=== PATIENT | female | born 1990 | race Caucasian/White ===

== ENCOUNTER 2020-03-11 06:48 | Outpatient (NON) | payer OTHER, SELFPAY ==
[2020-03-11 16:42] LABS: SARS-CoV-2 RNA PCR Negative
== END 2020-03-11 06:49 ==
PROVIDERS: Visit Provider Family Medicine
DX: J02.9 Acute pharyngitis, unspecified (principal); R09.81 Nasal congestion; Z20.828 Contact with and (suspected) exposure to other viral communicable diseases
CPT/HCPCS: 87635; C9803; U0003

== ENCOUNTER 2020-07-21 06:55 | Outpatient (NON) | payer SELFPAY ==
[2020-07-21 21:57] LABS: SARS-CoV-2 RNA PCR Negative
== END 2020-07-21 06:56 ==
PROVIDERS: PCP Physician Assistant; Visit Provider Physician Assistant
DX: Z20.822 Contact with and (suspected) exposure to COVID-19 (principal)
CPT/HCPCS: C9803; U0003; U0005

== ENCOUNTER 2020-10-14 19:58 | Emergency (ER) | payer SELFPAY ==
--- NOTE | ~2020-10-14 | XR_ITS ---
XR finger 5th RT min 2V DATE: 10/14/2020 20:41 INDICATION: Injury TECHNIQUE: 4 views COMPARISON: None FINDINGS: There is complete posterior dislocation at the proximal interphalangeal joint. No apparen t fracture. IMPRESSION: Posterior dislocation at proximal interphalangeal joint lower vague irregularity lung bases no hilar or posterior dislocation of proximal interphalangeal joint; no fracture Reviewed, dictated and finalized at location A. IMPRESSION: Posterior dislocation at proximal interphalangeal joint lower vague irregularit y lung bases no hilar or posterior dislocation of proximal interphalangeal join t; no fracture
[2020-10-14 20:24] VITALS: BP 78/41; PULSE 98; RESP 18; O2SAT 100
[2020-10-14 20:38] VITALS: BP 114/75; PULSE 71; RESP 16; O2SAT 98
--- NOTE | 2020-10-14 20:48 | PC.NURSE ---
pt in room ED 2 c/o pain and deformity to right pinkie finger after having it hit by ball playing kickball. resting on stretcher with eyes open. family at bedside. no s/s of distress. will continue to monitor.
--- NOTE | 2020-10-14 21:05 | ED.UPPEXIN ---
HPI - Extremity Injury (Upper) General Chief Complaint: Extremity Injury, Upper Stated Complaint: broken pinkie Time Seen by Provider: 10/14/20 20:43 Source: patient Mode of arrival: ambulatory Limitations: no limitations History of Present Illness HPI narrative: 30-year-old female Patient was playing kickball and tried to catch the ball but instead she dislocated the PIP of her right fifth finger Related Data Allergies Allergy/AdvReac Type Severity Reaction Status Date / Time SULFA Allergy Intermediate Unknown Uncoded 10/14/20 20:42 Review of Systems Musculoskeletal: Musculoskeletal: Reports arthralgias and Reports joint swelling Neurologic: Denies focal weakness and Denies numbness PMFSH Social History Social History Gender identity (if verbalized by the patient): Female Exam Const: General: no acute distress and alert Other: A little diaphoretic Resp: Effort & Inspection: normal respiratory effort Skin: General skin exam: normal color and no pallor Neuro: General: patient oriented x3 Extrem: Other: Dislocated right fifth PIP with intact sensation distally Course Vital Signs Vital signs: Vital Signs Pulse Rate 98 10/14/20 20:24 Respiratory Rate 18 10/14/20 20:24 Blood Pressure 78/41 L 10/14/20 20:24 Pulse Oximetry 100 10/14/20 20:24 Pulse Rate 71 10/14/20 20:38 Respiratory Rate 16 10/14/20 20:38 Blood Pressure 114/75 10/14/20 20:38 Pulse Oximetry 98 10/14/20 20:38 Procedures Orthopedic Joint Reduction Joint #1: Orthopedic Joint Reduction Date: 10/14/20 Orthopedic Joint Reduction Time: 21:11 Side: right Joint Reduction Location: finger (5th pip) Analgesia: none Pre-Procedure Neuro Vascular Exam: normal Technique used: other (Slight gentle tug) Post-reduction neuro exam: intact Post-reduction vascular: intact Post Reduction X-Ray Obtained: No Splint Applied: No (Just cyn taped by nursing) Patient Tolerated Procedure: well Discharge Plan Discharge Clinical Impression: Closed dislocation finger, proximal interphalangeal joint, traumatic Patient Disposition: Home, Self-Care Condition: Improved Instructions: Finger Dislocation (ED) Additional Instructions: Be sure to cyn tape to the finger next to it for the next 4 to 6 weeks of kickball games Follow-up/Referrals: Ruth Ann Mckeon, PAC [Primary Care Provider] - (As needed)
[2020-10-14 21:35] VITALS: BP 127/72; PULSE 72; RESP 16; O2SAT 98
== END 2020-10-14 21:37 | disposition home or self-care (01) ==
PROVIDERS: Emergency Provider Emergency Medicine; PCP Physician Assistant
DX: S63.286A Dislocation of proximal interphalangeal joint of right little finger, initial encounter (principal); W21.09XA Struck by other hit or thrown ball, initial encounter; Y93.6A Activity, physical games generally associated with school recess, summer camp and children
CPT/HCPCS: 26770; 73140; 99285

== ENCOUNTER → 2021-02-22 03:22 | Outpatient (CLI) | payer OTHER, SELFPAY ==
[2021-02-22 19:41] LABS: SARS-CoV-2 RNA PCR Negative
== END ==
PROVIDERS: Visit Provider Obstetrics & Gynecology
DX: Z01.812 Encounter for preprocedural laboratory examination (principal); Z20.822 Contact with and (suspected) exposure to COVID-19
CPT/HCPCS: C9803; U0003; U0005

== ENCOUNTER 2021-02-23 07:58 | Outpatient (CLI) | payer SELFPAY ==
[2021-02-23 08:28] LABS: Hematocrit 37.7 % (37.0-47.0); Hemoglobin 12.4 g/dL (12.0-15.0)
== END 2021-02-23 07:59 | disposition home or self-care (01) ==
PROVIDERS: PCP Physician Assistant; Visit Provider Obstetrics & Gynecology
DX: N92.6 Irregular menstruation, unspecified (principal); Z01.818 Encounter for other preprocedural examination
CPT/HCPCS: 36415; 85014; 85018

== ENCOUNTER 2021-02-25 03:04 | Day surgery (SDC) | payer SELFPAY ==
--- NOTE | 2021-02-22 13:22 | PM.IMHP ---
H&P: HPI History of Present Illness Date/Time: 02/22/21 13:22 this 30-year-old 0 admitted for hysteroscopy and dilatation curettage secondary to bleeding. She had a took an ultrasound which showed thickened endometrium. It appeared to be a possible polyp. Risks and benefits were reviewed in great detail Chief Complaint: bleeding and thickened endometrium Review of Systems Review of Systems: All systems reviewed & are unremarkable except as noted in HPI and below PMFSH Social History Social History Gender identity (if verbalized by the patient): Female Meds Home Medications and Allergies Allergies Allergy/AdvReac Type Severity Reaction Status Date / Time SULFA Allergy Intermediate Unknown Uncoded 10/14/20 20:42 Exam Const: General: no acute distress Eyes: General: appearance normal, both eyes and all related structures Neck: Neck: supple and no JVD Thyroid: thyroid normal Resp: Effort & Inspection: normal respiratory effort Auscultation: clear to auscultation bilaterally Cardio: Rate: regular rate Rhythm: regular rhythm GI: Inspection: non-distended GI Palp: Yes Soft to palpation, No Tenderness to palpation present (GI) and No Guarding due to palpation present (GI) Auscultation: normal bowel sounds : External Female Exam: normal external appearance Speculum Exam - Vagina: normal appearance of the vagina Speculum Exam - Cervix: normal appearance of the cervix Bimanual exam- vagina & uterus: uterine shape normal Bimanual Exam- Adnexa, other: normal adnexae Skin: General skin exam: no rashes or lesions noted Extrem: General: normal to inspection and no edema Psych: Mental Status: mental status grossly normal Affect: normal affect Assessment and Plan Additional Plan impression: Bleeding with thickened endometrium Plan: Hysteroscopy / dilatation curettage
[2021-02-22 15:12] VITALS: BMI 23.9
--- NOTE | 2021-02-24 13:21 | P.PNAN_ITS ---
Anes - Initial Pre Proc Eval Procedure: Operation Date: 02/25/21 11:30 Proposed Procedures p Hysteroscopy Dilation and Curettage - Amari Lucero MD Date/Time: 02/24/21 13:21 Surgeon: Amari Lucero MD Pre Op Diagnosis: Irregular Bleeding Patient Data Age: 30 Gender: F Height: 1.68 m Weight: 67.27 kg Allergies Allergy/AdvReac Type Severity Reaction Status Date / Time Sulfa (Sulfonamide Allergy Intermediate Rash Verified 02/25/21 10:46 Antibiotics) Home Medications Medication Instructions Recorded Confirmed Type prednisolone 10 mg PO PER PKG DIR 02/22/21 02/25/21 History hydrocodone-acetaminophen 1 tablet PO Q4H PRN #30 tablet 02/25/21 Rx Patient hx anesthesia problems: none Family hx anesthesia problems: none [facility] Social History Social History Smoking status: Current every day smoker Tobacco type: cigarettes Additional smoking assessment comments: 1ppd cigarettes x 12 years Substance use: never Living arrangements: alone Gender identity (if verbalized by the patient): Female Spiritual care concerns: No Anes - Eval Final PreProcedure Day of Procedure 02/24/21 13:21 Patient weight: normal Heart: regular rate and rhythm Lungs: clear to auscultation and normal air movement Airway: Mallampati scale class II Neurological: alert and oriented Last oral intake: >/= 8 hours ASA classification: II Emergent: no Anesthetic plan: proceed Anesthesia type and monitoring: general GIVS and standard monitoring Informed Consent: The patient's anesthetic plan and its attendant risks and benefits were discussed with the patient/family/POA. Questions were solicited and answers provided to the satisfaction of the patient/family/POA.
--- NOTE | 2021-02-25 07:20 | WPDHPUPDATE1 ---
History and Physical Update Update Date/Time: 02/25/21 07:20 History and Physical has been reviewed, including an updated exam of the patient. There are NO changes in the patient's condition. Risks, benefits, and alternatives have been discussed and questions answered. Patient agrees to proceed with procedure.
[2021-02-25] MEDS: ACETAMINOPHEN 500 MG TABLET 1000 MG PO (10:55)
--- NOTE | 2021-02-25 10:55 | SUR.PREOP ---
patient updated on surgery delay approx 1 hour will continue to update
[2021-02-25] MEDS: LACTATED RINGERS 1,000 ML 30 ML IV CONT (10:57)
[2021-02-25 11:50] VITALS: BP 99/63; PULSE 56; RESP 14; TEMP 36.8; O2SAT 100
--- NOTE | 2021-02-25 12:13 | SUR.PREOP ---
patient and mother updated again on time delay
--- NOTE | 2021-02-25 12:54 | W.PM.PROC2 ---
Procedure Note - Detailed Date of Procedure 02/25/21 Pre-op Diagnosis Irregular Bleeding Post-op Diagnosis same Procedure Performed Hysteroscopy / dilatation and curettage Surgeon Amari Lucero MD Anesthesia MAC and local Indications this is a 30-year-old female with excessive heavy bleeding refractory to medical therapy Findings uterus sounded to 9cm. Thick irregular endometrial tissue with benign appearance Description of Procedure the patient was prepped draped in the normal sterile fashion placed in the dorsal lithotomy position. Under excellent IV sedation weighted speculum placed posterior fornix vagina. Anterior lip of the cervix grasped with single-tooth tenaculum. 2.5cc of 1% xylocaine anesthesia placed at 2, 4, 8, 10:00 a.m. respectively of the uterus. Uterus sounded to 10cm. Serial dilatation with fragmented dilators performed followed by passage of the 5mm visualizing hysteroscope. Thick irregular endometrial tissue was seen but no evidence of other abnormalities. Each fallopian tube os could be seen and appeared within normal limits. The uterus was then scraped over the entire 360? until a good grating sound was heard. When no further tissue could be removed instruments removed. All sponge, needle, instrument counts were correct. There were no complications Estimated Blood Loss 5 Drains No Packing No Pathology yes Complications No immediate complications Condition stable Disposition same day
[2021-02-25 12:57] VITALS: BP 88/53; PULSE 63; RESP 12; O2SAT 100
[2021-02-25] MEDS: KETOROLAC 30 MG/ML VIAL (*BKC) IV PUSH (12:57)
[2021-02-25 13:10] VITALS: BP 96/69; PULSE 53; RESP 16
[2021-02-25 13:25] VITALS: BP 102/58; PULSE 60; RESP 16
[2021-02-25 13:40] VITALS: BP 105/74; PULSE 55; RESP 16
[2021-02-25 13:54] VITALS: BP 110/71; PULSE 55; RESP 16
== END 2021-02-25 14:00 | disposition home or self-care (01) ==
PROVIDERS: PCP Physician Assistant; Visit Provider Obstetrics & Gynecology
PROC: 0U5B8ZZ Destruction of Endometrium, Via Natural or Artificial Opening Endoscopic (ICD-10-PCS; CPT 58563; principal; 2021-02-25 11:30)
DX: N92.6 Irregular menstruation, unspecified (principal); F17.210 Nicotine dependence, cigarettes, uncomplicated
CPT/HCPCS: 58558; 88305; A9270; J1885; J2250; J2704; J3010; J7120

== ENCOUNTER → 2021-10-27 12:05 | Outpatient (CLI) | payer SELFPAY ==
--- NOTE | ~2021-10-27 | XR_ITS ---
EXAMINATION: [id number] INDICATION: Right rib pain TECHNIQUE: A frontal view of the chest and 3 views of the right ribs were obtained. COMPARISON: None. FINDINGS: The lungs are free of acute opacities. There is no pleural effusion or pneumothorax. The ca rdiomediastinal silhouette is normal. No displaced rib fracture is identified. IMPRESSION: 1. No acute cardiopulmonary abnormality or evidence of displaced rib fracture. Reviewed, dictated and finalized at location F.
== END ==
PROVIDERS: PCP Family Medicine; Visit Provider Family Medicine
DX: S29.9XXA Unspecified injury of thorax, initial encounter (principal)
CPT/HCPCS: 71101

== ENCOUNTER 2022-05-08 19:22 | Emergency (ER) | payer OTHER, SELFPAY ==
--- NOTE | 2022-05-08 19:37 | ED.URI ---
HPI - URI/Sore Throat General Chief Complaint: Upper Respiratory Infection Stated Complaint: flu symptoms Time Seen by Provider: 05/08/22 19:37 Source: patient Mode of arrival: ambulatory Limitations: no limitations History of Present Illness HPI Narrative: Miss Fox is a 31-year-old female patient presenting to the clinic today with complaints of possible flu. She reports that she has had symptoms since yesterday. Reports body aches, chills, fever, dry cough, and vomiting x1. Reports that she has a lot of people around her that her sick. Denies any known contact with anyone with flu, COVID, or strep. She took an at-home COVID test and it was negative today. Patient is 25 weeks MD elicited complaint: sore throat and nasal congestion Related Data Allergies Allergy/AdvReac Type Severity Reaction Status Date / Time Sulfa (Sulfonamide Allergy Intermediate Rash Verified 05/08/22 19:47 Antibiotics) Review of Systems Review of Systems: Pertinent positives per HPI. Patient denies any rash, headache, visual changes, dizziness, shortness of breath, chest pain, palpitations, nausea, vomiting, diarrhea, constipation, abdominal pain, or any urinary issues. [facility] Social History Social History Smoking status: Current every day smoker Tobacco type: cigarettes Additional smoking assessment comments: 1ppd cigarettes x 12 years Substance use: never Gender identity (if verbalized by the patient): Female Spiritual care concerns: No Comments At the time of my signature, I reviewed and agree with the nursing past medical, surgical, social, and family history. There is no relevant family history pertinent to the patient complaint. Exam Narrative: General: Well-developed, well nourished, in no apparent distress Head: Normocephalic, atraumatic Eyes: Pupils equally round and reactive to light bilaterally, EOM intact, sclera and conjunctive clear, no discharge, lids normal Ears: TMs intact and clear, ear canals clear, no drainage, grossly hearing normal. Nose: Nares patent, clear nasal discharge, no inflammation, no sinus tenderness. Mouth: Oral pharynx without lesions or masses, good dentition, MMM. Postnasal drip Neck: Supple, trachea midline, no enlargement of anterior or posterior cervical nodes, no thyroid masses or goiter palpable. Cardio: Regular rate and rhythm, s1 and s2 normal, no murmur appreciated. Resp: Clear to auscultation bilaterally, no rhonchi, rales, wheezing or rubs Course Course Emergency Course: Portions of this record may have been created with voice recognition software. Level of Care: Express Care Visit Vital Signs Vital signs: Vital Signs Temperature 37.1 C 05/08/22 19:40 Pulse Rate 112 H 05/08/22 19:40 Respiratory Rate 18 05/08/22 19:40 Blood Pressure 116/66 05/08/22 19:40 Pulse Oximetry 99 05/08/22 19:40 Oxygen Delivery Room Air 05/08/22 19:40 Temperature 37.1 C 05/08/22 19:40 Pulse Rate 112 H 05/08/22 19:40 Respiratory Rate 18 05/08/22 19:40 Blood Pressure 116/66 05/08/22 19:40 Pulse Oximetry 99 05/08/22 19:40 Oxygen Delivery Room Air 05/08/22 19:40 Vital signs reviewed MDM - URI/Sore Throat MDM Narrative Medical decision making narrative: At the time of visit today patient is resting comfortably on the exam table. Influenza testing was performed in the clinic and was negative. Patient denies sore throat so strep test was not completed. COVID test at home was negative. I suspect patient has viral syndrome/upper respiratory infection. Supportive measures were discussed with the patient she voiced understanding of discharge instructions and agrees to the treatment plan. Differential Diagnosis Differential diagnosis: Likely upper respiratory infection, otitis media, sinusitis, viral infection, bronchitis, influenza, pharyngitis and other (COVID) Lab Data Labs: I
[2022-05-08 19:40] VITALS: BP 116/66; PULSE 112; RESP 18; TEMP 37.1; O2SAT 99
== END 2022-05-08 20:14 | disposition home or self-care (01) ==
PROVIDERS: Emergency Provider Nurse Practitioner Family; PCP Physician Assistant
DX: O98.512 Other viral diseases complicating pregnancy, second trimester (principal); B33.8 Other specified viral diseases; B34.9 Viral infection, unspecified; O99.512 Diseases of the respiratory system complicating pregnancy, second trimester; J06.9 Acute upper respiratory infection, unspecified; Z3A.25 25 weeks gestation of pregnancy; O99.332 Smoking (tobacco) complicating pregnancy, second trimester
CPT/HCPCS: 87804; 99213; G0463

== ENCOUNTER 2022-07-10 17:58 | Outpatient (RCR) | payer OTHER, SELFPAY ==
[2022-06-21 12:59] VITALS: BP 123/77; PULSE 82
[2022-07-10 19:00] VITALS: BP 136/87; PULSE 97
== END 2022-09-16 19:47 | disposition home or self-care (01) ==
LOC: ANHOBOP 17:58
PROVIDERS: PCP Physician Assistant; Visit Provider Obstetrics & Gynecology
DX: O99.891 Other specified diseases and conditions complicating pregnancy (principal); W19.XXXA Unspecified fall, initial encounter; Z3A.32 32 weeks gestation of pregnancy
CPT/HCPCS: 59025

== ENCOUNTER 2022-08-09 11:32 | Inpatient (IN) | payer OTHER, MEDICAID, SELFPAY ==
[2022-08-09] VITALS (12 sets, daily range): BP systolic 111–143; BP diastolic 69–107; PULSE 72–87; BMI 35.2
[2022-08-09 14:22] LABS: Basophils Percent Auto 0.1 % (0.2-1.2); Eosinophils Percent Auto 0.3 % (0-4.4); Hematocrit 38.6 % (37.0-47.0); Immature Granulocyte Absolute 0.04 K/mm3 (0.00-0.031); Immature Granulocyte Percent A 0.4 % (0-0.5); Lymphocytes Absolute Auto 2.15 K/mm3 (0.9-3.2); Lymphocytes Percent Auto 20.7 % (18.3-44.2); Mean Corpuscular HGB Conc 33.7 g/dl (32-36); Mean Corpuscular Hemoglobin 28.6 pg (26-34); Mean Corpuscular Volume 84.8 fl (80-100); Mean Platelet Volume 10.7 fl (7.4-10.4); Monocytes Absolute Auto 0.6 K/mm3 (0.1-0.6); Monocytes Percent Auto 5.7 % (2.6-8.5); Neutrophils Absolute Auto 7.6 K/mm3 (1.3-6.7); Neutrophils Percent Auto 72.8 % (45.5-73.1); Platelet Count Result 270 k/mm3 (150-375); Red Blood Count 4.55 M/mm3 (4.2-5.4); Red Cell Distribution Width 13.5 % (11.5-14.5); White Blood Count 10.4 K/mm3 (4.5-10.0)
--- NOTE | 2022-08-09 15:20 | LDADM ---
This patient, Teresa Fox, was admitted to Labor/Delivery/Recovery 103 on 08/09/22 at 11:32. Plans for labor, pain management and were discussed with patient. Patient/family oriented to hospital policies and general routines including ID bracelet, bed and alarms, visiting hours, pain management, procedures, bathroom and other care routines, personal items, smoking policy, room service/diet and guest tray routines, security routines, and visiting hours. Patient/Family are encouraged to report perceived risks to care and to ask questions if they do not understand what they are told or what they should do. See OBIX for further documentation.
[2022-08-09] MEDS: DINOPROSTONE 10 MG VAG INSERT VAGINAL (15:23)
--- NOTE | 2022-08-09 15:56 | PM.IMHP ---
H&P: HPI History of Present Illness Date/Time: 08/09/22 15:56 Chief Complaint: uterine contractions at term Narrative: 1 1 para 0 was last menstrual period was 10/30/2021, EDC is 08/10/2022, firm by 8 week ultrasound presents at 3967 weeks tam. Some variable discolorations were noted on admission so her being term were going to keep her go for induction PMFSH Family History Family History Mother Hypertension Grandparent Hypertension Social History Social History Years smoked: 15 Smoking status: Former smoker Tobacco type: cigarettes Smoking end date: 05/07/22 Additional smoking assessment comments: 1ppd cigarettes x 12 years Substance use: never Lack of Transportation: No Lack of Food: Never True Current Housing: I Have Housing Concerned About Future Housing: No Difficulty Paying Gas/Electric Bills: No Difficulty Paying for Meds: No Currently Unemployed: No Education: High School Diploma/GED Difficulty w/ Childcare or Family Care: No Living arrangements: alone Gender identity (if verbalized by the patient): Female Spiritual care concerns: No Meds Home Medications and Allergies Home Medications Medication Instructions Recorded Confirmed Type vit no.95-ferrous 1 tablet PO DAILY 08/09/22 08/09/22 History fumarate 28 mg-folic acid 800 mcg tablet () Allergies Allergy/AdvReac Type Severity Reaction Status Date / Time nickel Allergy Intermediate Rash Verified 07/15/22 13:39 Sulfa (Sulfonamide Allergy Intermediate Rash Verified 05/08/22 19:47 Antibiotics) Vital Signs Vital Signs - 24 hr 08/09/22 14:00 08/09/22 14:35 08/09/22 15:00 Pulse Rate 81 81 76 Blood Pressure 143/90 H 114/76 111/86 Oxygen Delivery 08/09/22 15:25 08/09/22 15:30 08/09/22 15:21 Pulse Rate 74 77 Blood Pressure 125/77 128/79 Oxygen Delivery Room Air Exam Const: General: cooperative, healthy appearing, comfortable and average body habitus Orientation/consciousness: oriented to person, oriented to place and oriented to time HENMT: Head: normal to inspection Resp: Effort & Inspection: normal respiratory effort Cardio: Rate: regular rate Rhythm: regular rhythm Heart sounds: S1 normal heart sound present and S2 normal heart sound present GI: Inspection: normal to inspection Auscultation: normal bowel sounds : Speculum Exam - Vagina: normal appearance of the vagina Speculum Exam - Cervix: normal appearance of the cervix ( cervix dimple and soft) Bimanual exam- vagina & uterus: enlarged ( gravid soft uterus) H&P: Results Labs Labs: Short CBC 08/09/22 Range/Units 14:00 WBC 10.4 H (4.5-10.0) K/mm3 Hgb 13.0 (12.0-15.0) g/dL Hct 38.6 (37.0-47.0) % Plt Count 270 (150-375) k/mm3 Assessment and Plan Assessment and plan (1) Term : Code(s): Z34.90 - Encounter for supervision of normal , unspecified, unspecified trimester Status: Acute Plan medical induction labor. Spontaneous vaginal delivery expected. She has an epidural candidate
--- NOTE | 2022-08-09 18:40 | WPDANESEPP ---
Anes - Eval Pre Procedure Procedure: Labor epidural Date/Time: 08/09/22 18:40 Surgeon: [place] Preop Diagnosis: Abdominal pain with contractions Pre Op Diagnosis: IOL Patient Data Age: 31 Gender: F Height: 1.68 m Weight: 99 kg Last Vital Signs Pulse 85 08/09/22 18:30 BP 121/69 08/09/22 18:30 O2 Del Method Room Air 08/09/22 15:21 Allergies Allergy/AdvReac Type Severity Reaction Status Date / Time nickel Allergy Intermediate Rash Verified 07/15/22 13:39 Sulfa (Sulfonamide Allergy Intermediate Rash Verified 05/08/22 19:47 Antibiotics) Home Medications Medication Instructions Recorded Confirmed Type vit no.95-ferrous 1 tablet PO DAILY 08/09/22 08/09/22 History fumarate 28 mg-folic acid 800 mcg tablet () Laboratory Tests 08/09/22 08/09/22 08/09/22 14:00 14:00 14:00 WBC 10.4 K/mm3 H K/mm3 (4.5-10.0) RBC 4.55 M/mm3 M/mm3 (4.2-5.4) Hgb 13.0 g/dL g/dL (12.0-15.0) Hct 38.6 % % (37.0-47.0) MCV 84.8 fl fl (80-100) MCH 28.6 pg pg (26-34) MCHC 33.7 g/dl g/dl (32-36) RDW 13.5 % % (11.5-14.5) Plt Count 270 k/mm3 k/mm3 (150-375) MPV 10.7 fl H fl (7.4-10.4) Immature Gran % (Auto) 0.4 % % (0-0.5) Neut % (Auto) 72.8 % % (45.5-73.1) Lymph % (Auto) 20.7 % % (18.3-44.2) Dawes % (Auto) 5.7 % % (2.6-8.5) Eos % (Auto) 0.3 % % (0-4.4) Baso % (Auto) 0.1 % L % (0.2-1.2) Lymph # (Auto) 2.15 K/mm3 K/mm3 (0.9-3.2) Dawes # (Auto) 0.6 K/mm3 K/mm3 (0.1-0.6) Eos # (Auto) 0.0 K/mm3 K/mm3 (0-0.3) Baso # (Auto) 0.0 K/mm3 K/mm3 (0.0-0.1) Abs Immat Gran (auto) 0.04 K/mm3 H K/mm3 (0.00-0.031) Absolute Neuts (auto) 7.6 K/mm3 H K/mm3 (1.3-6.7) Absolute Nucleated RBC 0.0 K/mm3 K/mm3 (0.0-0.012) Nucleated RBC % 0.0 % % (0.0-0.2) RPR Pending Blood Type A Positive Antibody Screen Negative : gestational age HCG: positive Patient hx anesthesia problems: none Family hx anesthesia problems: none Results Review: All pre-operative results and documents have been reviewed as part of the pre-operative evaluation. [facility] Past Medical History Medical History Abnormal uterine bleeding (AUB) History of smoking Obesity STD (sexually transmitted disease) Term Family History Family History Mother Hypertension Grandparent Hypertension Social History Social History Years smoked: 15 Smoking status: Former smoker Tobacco type: cigarettes Smoking end date: 05/07/22 Additional smoking assessment comments: 1ppd cigarettes x 12 years Substance use: never Lack of Transportation: No Lack of Food: Never True Current Housing: I Have Housing Concerned About Future Housing: No Difficulty Paying Gas/Electric Bills: No Difficulty Paying for Meds: No Currently Unemployed: No Education: High School Diploma/GED Difficulty w/ Childcare or Family Care: No Living arrangements: alone Gender identity (if verbalized by the patient): Female Spiritual care concerns: No Exam Day of Procedure 08/09/22 18:40 Patient weight: obese Airway: Mallampati scale class II
[2022-08-09] MEDS: fentaNYL CITRATE INJ (*CRX) 100 MCG/2 ML VIAL 50 MCG IV PUSH (22:10)
[2022-08-09] MEDS: ZOLPIDEM TARTRATE (*CRX) 5 MG TABLET PO (23:11)
[2022-08-10] VITALS (191 sets, daily range): BP systolic 96–153; BP diastolic 37–109; PULSE 64–137; RESP 16–20; TEMP 36.6–38; O2SAT 97–100
[2022-08-10] MEDS: LACTATED RINGERS 1,000 ML 999 ML IV CONT ×2 (00:31→03:21)
[2022-08-10] MEDS: fentaNYL CITRATE INJ (*CRX) 100 MCG/2 ML VIAL IV PUSH ×2 (00:33→02:08)
[2022-08-10] MEDS: LACTATED RINGERS 1,000 ML 125 ML IV CONT (06:00)
--- NOTE | 2022-08-10 07:07 | PM.OBPNLAB ---
Pain Control Date/time seen: 08/10/22 07:07 Pain control: tolerating well and epidural Pelvic Exam Dilation (cm): 2 Effacement (%): 80 station: -2 Amniotic membrane status: Leaking (green) Contractions Monitor mode: Internal
[2022-08-10] MEDS: OXYTOCIN 30 UNITS/NS 500 ML 30 UNITS/500 ML BAG 6 UNITS IV CONT (07:25)
[2022-08-10] MEDS: SODIUM CHLORIDE 0.9% IV 300 ML 600 ML I-UTERINE (07:30)
[2022-08-10] MEDS: SODIUM CHLORIDE 0.9% IV 1,000 ML 100 ML I-UTERINE (08:00)
[2022-08-10] MEDS: ONDANSETRON INJ 4 MG/2 ML VIAL IV PUSH (11:35)
--- NOTE | 2022-08-10 11:35 | PM.OBPNLAB ---
Pain Control Date/time seen: 08/10/22 11:35 Pain control: tolerating well and epidural Pelvic Exam Dilation (cm): 3 Effacement (%): 80 station: -2 Amniotic membrane status: Leaking (green) Comments: poor progress /fhts ok, now down after emesesis. offerede section Contractions Monitor mode: Internal
--- NOTE | 2022-08-10 11:37 | WPDHPUPDATE1 ---
History and Physical Update Update Date/Time: 08/10/22 11:37 History and Physical has been reviewed, including an updated exam of the patient. There are NO changes in the patient's condition. Risks, benefits, and alternatives have been discussed and questions answered. Patient agrees to proceed with procedure. section ordered
[2022-08-10] MEDS: TERBUTALINE SULFATE 1 MG/ML VIAL 0.25 MG SUB-Q (11:43)
[2022-08-10] MEDS: ceFAZolin 2 GM/D5W 50 ML 2 GM/50 ML BAG IVPB (11:53)
--- NOTE | 2022-08-10 12:33 | W.PM.PROC2 ---
Procedure Note - Detailed Date of Procedure 08/10/22 Pre-op Diagnosis IOL/ intolerance to labor Post-op Diagnosis Same Procedure Performed primary low-transverse section Surgeon Amari Jauregui MD Anesthesia Epidural Indications 31-year-old female with recurrent decelerations meconium fluid at term Findings female infant 6lb 15oz with Apgars of 8915minutes respectively Description of Procedure the patient was admitted for induction of labor secondary to nonreassuring heart tones. She underwent Cervidil progressed to about 3cm had recurrent variable discolorations with some lates and due to lack of progress and the continued nonreassuring pattern she was offered section after obtaining informed consent was taken back prepped draped in normal sterile fashion placed in the supine position. Under excellent epidural anesthesia the arm was entered in Pfannenstiel fashion progressive layers to fascia. Fascia was incised midline cure number not fashion bilaterally. Underlying muscles sharply dissected. Parietal peritoneum elevated clamped and my card sharp dissection carried superiorly and inferiorly dome of the bladder. Bladder blade was placed. Bladder flap was formed. Bladder blade returned. A low-transverse incision made head delivered in the FELIZ position. Anterior posterior shoulder delivered spontaneously. Cord clamped and cut infant passed off the table given Apgars of 8 [id number]. Cord blood was drawn. Placenta delivered intact manually uterus delivered abdomen wrapped in a moist towel. After assuring no membranes or debris remained in the uterus. The uterus was closed with continuous running locking 0 Vicryl from lateral edge to lateral edge. This was followed by 2nd imbricating running locking 0 Vicryl from lateral edge to lateral edge. Hemostasis was assured. Ovaries and tubes appeared within normal limits. And the hysterotomy incision appeared hemostatic. Was returned to the abdomen. The hysterotomy incision inspected 1 last time noted be hemostatic. Laps removed and accounted for. Fascia closed with continuous running 0 Vicryl from lateral edge to midline bilaterally. Irrigation subcutaneous layer the skin closed with 4-0 Monocryl and glue. QBL was 1465. All sponge, needle, instrument counts were correct. There were no immediate complications Estimated Blood Loss 1,465 Drains No Packing No Pathology None sent Complications No immediate complications Condition Stable Disposition PACU
--- NOTE | 2022-08-10 14:54 | OBPPTRN ---
Patient transferred to post room # 283 via stretcher accompanied by fob and infant. PT moved to bed via maxi air without difficulty. Pt introductions made and plan of care discussed per post op c section, pain management, breast feeding, daily care activities. PT and fob both recipients of such instructions and no barriers to learning identified at this time. PT received such instructions per one to one discussion, mom baby care guide and demonstrations this shift. Oriented to unit, room, information board, rooming in, admission packet and security measures. Patient verbalizes understanding.
[2022-08-10 16:03] LABS: Rapid Plasma Reagin Non-Reactive (NonReactive)
[2022-08-10] MEDS: KETOROLAC 30 MG/ML VIAL (*BKC) IV PUSH ×2 (17:22→23:25)
[2022-08-10] MEDS: DOCUSATE SODIUM 100 MG CAPSULE PO (17:23)
[2022-08-10] MEDS: SIMETHICONE 80 MG TAB.CHEW PO (17:23)
[2022-08-10] MEDS: POLYSACCHARIDE IRON COMPLEX 150 MG CAPSULE PO (17:23)
[2022-08-10] MEDS: ACETAMINOPHEN 325 MG TABLET 650 MG PO (19:56)
[2022-08-11 05:05] VITALS: BP 98/63; PULSE 81; RESP 16; TEMP 36.8
[2022-08-11 05:38] LABS: Basophils Percent Auto 0.3 % (0.2-1.2); Eosinophils Percent Auto 0.4 % (0-4.4); Hematocrit 28.1 % (37.0-47.0); Hemoglobin 9.2 g/dL (12.0-15.0); Immature Granulocyte Absolute 0.05 K/mm3 (0.00-0.031); Immature Granulocyte Percent A 0.5 % (0-0.5); Lymphocytes Absolute Auto 2.31 K/mm3 (0.9-3.2); Lymphocytes Percent Auto 21.1 % (18.3-44.2); Mean Corpuscular HGB Conc 32.7 g/dl (32-36); Mean Corpuscular Volume 88.6 fl (80-100); Mean Platelet Volume 10.6 fl (7.4-10.4); Monocytes Absolute Auto 0.7 K/mm3 (0.1-0.6); Monocytes Percent Auto 6.8 % (2.6-8.5); Neutrophils Absolute Auto 7.8 K/mm3 (1.3-6.7); Neutrophils Percent Auto 70.9 % (45.5-73.1); Platelet Count Result 190 k/mm3 (150-375); Red Blood Count 3.17 M/mm3 (4.2-5.4); White Blood Count 10.9 K/mm3 (4.5-10.0)
[2022-08-11 07:30] VITALS: BP 108/56; PULSE 86; RESP 16; TEMP 36.9; O2SAT 99
[2022-08-11] MEDS: POLYSACCHARIDE IRON COMPLEX 150 MG CAPSULE PO ×2 (08:27→16:15)
[2022-08-11] MEDS: ACETAMINOPHEN 325 MG TABLET 650 MG PO ×3 (08:28→23:45)
[2022-08-11] MEDS: DOCUSATE SODIUM 100 MG CAPSULE PO ×2 (08:28→16:15)
--- NOTE | 2022-08-11 08:58 | PM.DS ---
DS: Admitting Diagnosis Discharge Date 08/12/22 Admitting Diagnosis term DS: Discharge Diagnosis Discharge Diagnosis (1) Term : Code(s): Z34.90 - Encounter for supervision of normal , unspecified, unspecified trimester Status: Acute (2) intolerance to labor, delivered, current hospitalization: Code(s): O77.9 - Labor and delivery complicated by stress, unspecified Status: Acute DS: Summary Hospital Course Reason for hospitalization: patient was admitted at 39 and 6 7th weeks gestation with irregular contractions and questionable heart tones Hospital Course: she underwent failed induction of labor secondary to intolerance to labor. She underwent low-transverse section on 08/09/2022. Her hospital course was unremarkable. She remainedAfebrile. She was up, voiding without difficulty, ambulating, eating regular diet, breast-feeding, and generally without complaints. Time Spent with Patient Time attestation: Total time spent providing and/or coordinating discharge services: Exam Const: General: cooperative, healthy appearing and comfortable Nutritional Appearance: average body habitus Resp: Effort & Inspection: normal respiratory effort Cardio: Rate: regular rate Rhythm: regular rhythm Heart sounds: S1 normal heart sound present and S2 normal heart sound present GI: Inspection: normal to inspection and incision ( Clean dry and intact) DS: Data Data Completed and Pending Labs on day of discharge: Labs from last 24 hours 08/11/22 08/09/22 05:27 14:00 WBC 10.9 H RBC 3.17 L Hgb 9.2 L D Hct 28.1 L MCV 88.6 MCH 29.0 MCHC 32.7 RDW 14.0 Plt Count 190 MPV 10.6 H Immature Gran % (Auto) 0.5 Neut % (Auto) 70.9 Lymph % (Auto) 21.1 [place] % (Auto) 6.8 Eos % (Auto) 0.4 Baso % (Auto) 0.3 Lymph # (Auto) 2.31 [place] # (Auto) 0.7 H Eos # (Auto) 0.0 Baso # (Auto) 0.0 Abs Immat Gran (auto) 0.05 H Absolute Neuts (auto) 7.8 H Absolute Nucleated RBC 0.0 Nucleated RBC % 0.0 RPR Non-reactive Discharge Plan Discharge Attending physician on discharge: Amari Gant Discharging Clinician: Amari Gant Patient Disposition: Home, Self-Care Activity: may shower, no straining, may drive after 2 weeks and pelvic rest Diet: heart healthy Wound Care Instructions: follow printed instructions Patient Instructions: Antibiotic Form Stand Alone Forms: General Discharge Information Follow-up/Referrals: Amari Gant MD [Physician] - Discharge Medications: New hydrocodone-acetaminophen 5-325 mg tablet 1 tablet PO Q4H PRN (Reason: pain) Qty: 30 0RF Continued PNV cmb#95-ferrous fumarate-FA [] 28 mg iron- 800 mcg Tablet 1 tablet PO DAILY Date of admission: 08/09/22 11:32 Primary Care Provider: Ruth Ann Mckeon Admitting Provider: Amari Gant Attending physician on admission: Amari Gant Condition: Stable
--- NOTE | 2022-08-11 09:04 | WPDANLDPN2 ---
Anes-Prog Note L&D Date/Time: 08/11/22 09:04 Comfortable throughout: labor and section Neuraxial method: epidural Epidural/Spinal procedure site: clean & non-tender Neuro status: Neuro function grossly intact. Cardiovascular status: normal Respiratory status: normal Airway patency: baseline Mental status: baseline Post-Op hydration status: normal Vital Signs: Last Vital Signs Temp 98.5 F 08/11/22 07:30 Pulse 86 08/11/22 07:30 Resp 16 08/11/22 07:30 BP 108/56 L 08/11/22 07:30 Pulse Ox 99 08/11/22 07:30 O2 Del Method Room Air 08/10/22 18:15 Pain score (VAS): 0 I/O: Intake & Output 08/10/22 08/11/22 08/11/22 23:59 07:59 15:59 Intake Total 1200 500 Output Total 650 900 Balance 550 -400 Post-procedural complaints: none Patient feedback: Patient satisfied with anesthetic care.
--- NOTE | 2022-08-11 09:11 | WPDANLDNPN2 ---
Anes-Prog Note L&D-Neuraxial Date/Time: 08/11/22 09:11 Neuraxial medications: epidural PF morphine Opiod-related complaints: pruritis (severe, no meds) Patient feedback: Patient satisfied with post-operative pain management.
[2022-08-11] MEDS: SIMETHICONE 80 MG TAB.CHEW PO (10:37)
[2022-08-11] MEDS: IBUPROFEN 600 MG TABLET PO ×2 (10:37→16:15)
--- NOTE | 2022-08-11 11:01 | PC.NURSE ---
[id number] Introductions were made, then consulted with patient to assess needs related to . Mother led the conversation with her?plans to feed?her infant and the?experience so far. Resources provided for inpatient and outpatient services with the mom/baby guide. Mother voiced understanding of information and is receptive to assistance. Mother states infant just had a about 1 1/2, father of baby is holding a crying . Mother works well with her infant with encouragement and education. Encouraged understanding of the benefits of skin to skin (demonstrating unwrapping infant and placing upright on her chest), stimulating with massage touch, changing positions to encourage wakefulness, how to watch for early feeding cues, responsive feeding, feeding on demand (aiming for 8-12 times in 24 hours, about every 2-3 hours), milk production, building/maintaining a milk supply, duration of feeding, signs of adequate intake/output and how to record on the feeding sheet. Mother demonstrated latching her infant. Infant attempts to latch to the nipple. Reviewed positioning and ear, shoulder, hip alignment, supporting the breast to facilitate a deep latch, asymmetrical latch (off-center), leading with the chin with a big, open, wide gape and body close to mother. After several attempts infant latches to the breast and mother denies pain. RN visualized occasional chomping motions rather than a rocking suck/swallow motion. Encouraged mother to detach after mother acknowledges there may be some pinching discomfort. After infant was repositioned, waiting for a big, wide gape, then latched optimally to the right breast in football position. Education given to mother of how to visualize suck/swallow ratios, keeping actively and how to listen for drinking at the breast. was able to maintain latch without discomfort to mother. Nipple care reviewed with optimal latch and good positioning. Reviewed good handwashing when or touching the breast/nipples to prevent infection. Resources used to facilitate learning were used with the mom and baby guide. Mother voiced understanding of skin to skin, stimulating with massage touch, responsive feedings, talking to to encourage if it has been 2-2.5 hours since the start of the last , to call if does not latch, or if there is discomfort with . Resources provided for inpatient/outpatient with the mom/baby guide. Parents voiced understanding of information, demonstrated learning and will call if there is a request for assistance. Reported to the primary RN.
[2022-08-11 11:30] VITALS: BP 106/64; PULSE 80; RESP 16; TEMP 37.1; O2SAT 100
[2022-08-11 21:25] VITALS: BP 128/72; PULSE 90; RESP 16; TEMP 36.7
[2022-08-11] MEDS: MULTIVIT/MIN/PREN/FOL AC/IRON TABLET 1 TAB PO (23:45)
[2022-08-12] MEDS: IBUPROFEN 600 MG TABLET PO ×2 (03:55→10:00)
--- NOTE | 2022-08-12 07:23 | P.PNOB_ITS ---
OB - PN: Subj Subjective Date/time seen: 08/12/22 07:23 Patient comments: no complaints and pain well controlled baby status: doing well and nursing well OB - PN: Obj Data Labs 08/11/22 05:27 OB - PN A/P Plan day: 2 Plan: routine care, discharge home and follow up 6 weeks (4) Time Spent With Patient Time: Total time spent is greater than 50% in coordination of care (as documented) at patient's floor/unit and/or counseling patient: Time with patient: less than 15 minutes Exam Const: General: cooperative, healthy appearing, comfortable and well groomed Orientation/consciousness: oriented to person, oriented to place and oriented to time HENMT: Head: normal to inspection Resp: Effort & Inspection: normal respiratory effort Cardio: Rate: regular rate Rhythm: regular rhythm Heart sounds: S1 shweta l heart sound present and S2 normal heart sound present GI: Inspection: normal to inspection and incision (cdi)
[2022-08-12] MEDS: POLYSACCHARIDE IRON COMPLEX 150 MG CAPSULE PO (10:00)
[2022-08-12] MEDS: DOCUSATE SODIUM 100 MG CAPSULE PO (10:00)
[2022-08-12 10:31] VITALS: BP 130/69; PULSE 82; RESP 18; TEMP 36.8; O2SAT 100
[2022-08-12] MEDS: MEASLES,MUMPS,RUBELLA VACCINE 0.5 ML VIAL SUB-Q (11:30)
[2022-08-12] MEDS: TETANUS,DIPHTHERIA,AC PERTUSSIS ADULT (0.5 ML) BOOSTRIX IM (11:30)
[2022-08-14 11:28] VITALS: BP 139/84; PULSE 91; RESP 20; TEMP 37.1; O2SAT 100
== END 2022-08-12 12:35 | disposition home or self-care (01) | DRG 807 ==
LOC: ANHLDR 08-10 10:30 → ANHOB2 08-10 15:02
PROVIDERS: Admitting Provider Obstetrics & Gynecology; PCP Physician Assistant; Visit Provider Obstetrics & Gynecology
PROC: 10E0XZZ Delivery of Products of Conception, External Approach (ICD-10-PCS; CPT 59514; principal; 2022-08-10 12:00)
DX: O77.0 Labor and delivery complicated by meconium in amniotic fluid (principal); Z37.0 Single live birth; Z3A.40 40 weeks gestation of pregnancy; O36.8330 Maternal care for abnormalities of the fetal heart rate or rhythm, third trimester, not applicable or unspecified
CPT/HCPCS: 36415; 85025; 86592; 86850; 86900; 86901; 90710; 90715; A9270; J0131; J0456; J0690; J1885; J2274; J2405; J2590; J2795; J3010; J3105; J7030; J7120

== ENCOUNTER 2023-12-10 06:54 | Observation (INO) | payer OTHER, MEDICAID, SELFPAY ==
--- NOTE | 2023-12-18 12:27 | PM.OBTRLD ---
OB - Triage/Final Diagnosis Visit Information Comments/Additional reasons for admission: I have assessed the risk for this patient, Teresa Fox, and determined that she would benefit from observation care. Final Diagnosis (1) False labor: Code(s): O47.9 - False labor, unspecified Status: Acute
== END 2023-12-10 12:10 | disposition home or self-care (01) ==
PROVIDERS: Admitting Provider Obstetrics & Gynecology; PCP Physician Assistant; Visit Provider Obstetrics & Gynecology
DX: O47.1 False labor at or after 37 completed weeks of gestation (principal); Z3A.39 39 weeks gestation of pregnancy
CPT/HCPCS: G0378; G0379

== ENCOUNTER 2023-12-10 21:37 | Inpatient (IN) | payer OTHER, MEDICAID, SELFPAY ==
[2023-12-11] VITALS (250 sets, daily range): BP systolic 78–149; BP diastolic 37–94; PULSE 64–128; RESP 16–19; TEMP 36.6–37.7; O2SAT 97–100; BMI 34.5
--- NOTE | 2023-12-11 00:58 | P.PNAN_ITS ---
Anes - Eval Pre Procedure Procedure: Labor Epidural Date/Time: 12/11/23 00:58 Surgeon: Stephanie Preop Diagnosis: Labor Pain Pre Op Diagnosis: Labor Patient Data Age: 33 Gender: F Height: Weight: Allergies Allergy/AdvReac Type Severity Reaction Status Date / Time nickel Allergy Intermediate Rash Verified 11/23/23 15:14 Sulfa (Sulfonamide Allergy Intermediate Rash Verified 11/23/23 15:14 Antibiotics) Home Medications Medication Instructions Recorded Confirmed Type vit no.95-ferrous 1 tablet PO DAILY 08/09/22 08/09/22 History fumarate 28 mg-folic acid 800 mcg tablet () : gestational age (ISREAL 12/14/23, ) Patient hx anesthesia problems: none Family hx anesthesia problems: none Results Review: All pre-operative results and documents have been reviewed as part of the pre- operative evaluation. [facility] Past Medical History Medical History Abnormal uterine bleeding (AUB) History of smoking Obesity STD (sexually transmitted disease) Term Family History Family History Mother Hypertension Grandparent Hypertension Social History Social History Years smoked: 15 Smoking status: Former smoker Tobacco type: cigarettes Smoking end date: 05/07/22 Additional smoking assessment comments: 1ppd cigarettes x 12 years Substance use: never Lack of Transportation: No Lack of Food: Never True Current Housing: I Have Housing Concerned About Future Housing: No Difficulty Paying Gas/Electric Bills: No Difficulty Paying for Meds: No Currently Unemployed: No Education: High School Diploma/GED Difficulty w/ Childcare or Family Care: No Living arrangements: alone Gender identity (if verbalized by the patient): Female Spiritual care concerns: No Exam Day of Procedure 12/11/23 00:58 Patient weight: normal Heart: regular rate and rhythm Lungs: normal air movement Airway: Mallampati scale class II Neurological: alert and oriented
[2023-12-11] MEDS: LACTATED RINGERS 1,000 ML 125 ML IV CONT ×3 (01:00→11:07)
[2023-12-11 01:12] LABS: Basophils Percent Auto 0.1 % (0.2-1.2); Eosinophils Percent Auto 0.1 % (0-4.4); Hemoglobin 11.6 g/dL (12.0-15.0); Immature Granulocyte Absolute 0.07 K/mm3 (0.00-0.031); Immature Granulocyte Percent A 0.5 % (0-0.5); Lymphocytes Absolute Auto 2.01 K/mm3 (0.9-3.2); Lymphocytes Percent Auto 15.1 % (18.3-44.2); Mean Corpuscular HGB Conc 33.1 g/dl (32-36); Mean Corpuscular Hemoglobin 27.4 pg (26-34); Mean Corpuscular Volume 82.5 fl (80-100); Mean Platelet Volume 11.3 fl (7.4-10.4); Monocytes Absolute Auto 0.6 K/mm3 (0.1-0.6); Monocytes Percent Auto 4.1 % (2.6-8.5); Neutrophils Absolute Auto 10.7 K/mm3 (1.3-6.7); Neutrophils Percent Auto 80.1 % (45.5-73.1); Platelet Count Result 264 k/mm3 (150-375); Red Blood Count 4.24 M/mm3 (4.2-5.4); Red Cell Distribution Width 14.3 % (11.5-14.5); White Blood Count 13.3 K/mm3 (4.5-10.0)
--- NOTE | 2023-12-11 02:02 | LDADM ---
This patient, Teresa Fox, was admitted to Labor/Delivery/Recovery 102 on 12/10/23 at 21:37. Plans for labor, pain management and were discussed with patient. Patient/family oriented to hospital policies and general routines including ID bracelet, bed and alarms, visiting hours, pain management, procedures, bathroom and other care routines, personal items, smoking policy, room service/diet and guest tray routines, security routines, and visiting hours. Patient/Family are encouraged to report perceived risks to care and to ask questions if they do not understand what they are told or what they should do. See OBIX for further documentation.
[2023-12-11 02:05] LABS: HIV 1/2 Ab P24 Ag Result Negative (Negative)
--- NOTE | 2023-12-11 07:18 | PM.IMHP ---
H&P: HPI History of Present Illness Date/Time: 12/11/23 07:18 Chief Complaint: labor t at term Narrative: 33-year-old 2 para 1 whose EDC is 12/14/2023 presents at 39 and +station in active labor. She has previous section and of her trial of labor after . Risks and benefits of vaginal after reviewed including injury to the baby plantar etc.. She has changed her cervix was cleared to go for. Artificial rupture membranes goals coring stated fluid heart tones reassuring and IUPC is placed. [facility] Past Medical History Medical History Abnormal uterine bleeding (AUB) History of smoking Obesity STD (sexually transmitted disease) Term Family History Family History Mother Hypertension Grandparent Hypertension Social History Social History Years smoked: 15 Smoking status: Former smoker Additional smoking assessment comments: 1ppd cigarettes x 12 years Substance use: never Do You Feel Safe in your Home?: Yes Lack of Transportation: No Lack of Food: Never True Current Housing: I Have Housing Concerned About Future Housing: No Difficulty Paying Gas/Electric Bills: No Difficulty Paying for Meds: No Currently Unemployed: No Education: High School Diploma/GED Difficulty w/ Childcare or Family Care: No Living arrangements: alone Gender identity (if verbalized by the patient): Female Spiritual care concerns: No Meds Home Medications and Allergies Home Medications Medication Instructions Recorded Confirmed Type vit no.95-ferrous 1 tablet PO DAILY 08/09/22 08/09/22 History fumarate 28 mg-folic acid 800 mcg tablet () Allergies Allergy/AdvReac Type Severity Reaction Status Date / Time nickel Allergy Intermediate Rash Verified 11/23/23 15:14 Sulfa (Sulfonamide Allergy Intermediate Rash Verified 11/23/23 15:14 Antibiotics) Vital Signs Vital Signs - 24 hr 12/11/23 01:12 12/11/23 01:13 12/11/23 01:17 Temperature Pulse Rate 97 Respiratory Rate Blood Pressure 127/76 Pulse Oximetry 100 100 12/11/23 01:20 12/11/23 01:22 12/11/23 01:23 Temperature Pulse Rate 92 Respiratory Rate Blood Pressure 121/76 Pulse Oximetry 100 100 12/11/23 01:25 12/11/23 01:26 12/11/23 01:28 Temperature Pulse Rate 90 86 Respiratory Rate Blood Pressure 118/79 107/69 Pulse Oximetry 100 12/11/23 01:30 12/11/23 01:32 12/11/23 01:35 Temperature Pulse Rate 88 81 88 Respiratory Rate Blood Pressure 107/72 105/63 109/65 Pulse Oximetry 100 99 12/11/23 01:37 12/11/23 01:40 12/11/23 01:42 Temperature Pulse Rate 83 86 86 Respiratory Rate Blood Pressure 118/61 115/86 126/75 Pulse Oximetry 99 12/11/23 01:45 12/11/23 01:47 12/11/23 01:50 Temperature Pulse Rate 85 78 84 Respiratory Rate Blood Pressure 113/51 L 113/64 128/81 Pulse Oximetry 99 99 12/11/23 01:55 12/11/23 02:00 12/11/23 02:05 Temperature 98 F Pulse Rate 81 81 72 Respiratory Rate Blood Pressure 119/64 121/75 118/68 Pulse Oximetry 98 98 98 12/11/23 02:10 12/11/23 02:15 12/11/23 02:20 Temperature Pulse Rate 87 79 82 Respiratory Rate Blood Pressure 113/71 121/77 123/70 Pulse Oximetry 98 97 98 12/11/23 02:25 12/11/23 02:30 12/11/23 02:35 Temperature Pulse Rate 80 84 78 Respiratory Rate Blood Pressure 111/67 106/56 L 102/62 Pulse Oximetry 98 99 99 12/11/23 02:40 12/11/23 02:45 12/11/23 02:50 Temperature Pulse Rate 75 Respiratory Rate Blood Pressure 115/77 Pulse Oximetry 99 100 98 12/11/23 02:55 12/11/23 03:00 12/11/23 03:05 Temperature Pulse Rate 72 Respiratory Rate Blood Pressure 114/57 L Pulse Oximetry 99 99 100 12/11/23
[2023-12-11] MEDS: SODIUM CHLORIDE 0.9% IV 1,000 ML 100 ML I-UTERINE (07:36)
[2023-12-11] MEDS: OXYTOCIN 30 UNITS/NS 500 ML 30 UNITS/500 ML BAG IV CONT (09:35)
--- NOTE | 2023-12-11 11:37 | PM.OBPNLAB ---
Pain Control Date/time seen: 12/11/23 11:37 Pain control: tolerating well and epidural Pelvic Exam Dilation (cm): 4 Effacement (%): 75 station: -3 Amniotic membrane status: Leaking Contractions Monitor mode: Internal
[2023-12-11 11:42] LABS: Rapid Plasma Reagin Non-Reactive (NonReactive)
--- NOTE | 2023-12-11 16:12 | PM.OBPNLAB ---
Pain Control Date/time seen: 12/11/23 16:12 Pain control: tolerating well and epidural Pelvic Exam Dilation (cm): 10 Effacement (%): 100 station: -1 Amniotic membrane status: Leaking Contractions Monitor mode: Internal
--- NOTE | 2023-12-11 17:53 | PM.OBPRVD ---
OB - Vaginal Delivery Note Procedure Delivery date: 12/11/23 Events: Previous Delivery Induction method: None Delivery augmentation: Rupture of Membranes and Pitocin Delivery monitor: External FHT and Internal Uterine Route of delivery: Laceration Description: Vaginal (1st degree) Anesthesia type: Epidural Disposition: Floor Complications: No immediate complications [place] Baby Date of : 12/11/23 Time of : 17:36 Weeks of gestation at delivery: 39 presentation: vertex position: Right Occiput Anterior Placenta delivery description: Spontaneous Cord Vessel Description: 3 Vessels
--- NOTE | 2023-12-11 17:55 | PM.DS ---
DS: Admitting Diagnosis Discharge Date 12/13/2023 Admitting Diagnosis Term /previous section DS: Discharge Diagnosis Discharge Diagnosis (1) Previous section: Code(s): Z98.891 - History of uterine scar from previous surgery Status: Acute (2) Term : Code(s): Z34.90 - Encounter for supervision of normal , unspecified, unspecified trimester Status: Acute DS: Summary Hospital Course Reason for hospitalization: post was admitted in active labor with previous section on the a.m. of 12/11/2023 underwent successful Hospital Course: rest were grossly unremarkable. She remained afebrile. She was up, voiding without difficulty, eating regular diet, and generally without complaints. Time Spent with Patient Time attestation: Total time spent providing and/or coordinating discharge services: Exam Const: General: cooperative, healthy appearing and comfortable Nutritional Appearance: average body habitus Orientation/consciousness: oriented to person, oriented to place and oriented to time HENMT: Head: normal to inspection Resp: Effort & Inspection: normal respiratory effort Cardio: Rate: regular rate Rhythm: regular rhythm Heart sounds: S1 normal heart sound present and S2 normal heart sound present GI: Inspection: normal to inspection DS: Data Data Completed and Pending Labs on day of discharge: Labs from last 24 hours 12/11/23 01:07 WBC 13.3 H RBC 4.24 Hgb 11.6 L Hct 35.0 L MCV 82.5 MCH 27.4 MCHC 33.1 RDW 14.3 Plt Count 264 MPV 11.3 H Immature Gran % (Auto) 0.5 Neut % (Auto) 80.1 H Lymph % (Auto) 15.1 L [place] % (Auto) 4.1 Eos % (Auto) 0.1 Baso % (Auto) 0.1 L Lymph # (Auto) 2.01 [place] # (Auto) 0.6 Eos # (Auto) 0.0 Baso # (Auto) 0.0 Abs Immat Gran (auto) 0.07 H Absolute Neuts (auto) 10.7 H Absolute Nucleated RBC 0.000 Nucleated RBC % 0.0 RPR Non-reactive HIV 1&2 Ab/P24 Ag 4thGn Negative Blood Type A Positive Antibody Screen Negative Discharge Plan Discharge Attending physician on discharge: Amari Gant Discharging Clinician: Amari Gant Patient Disposition: Home, Self-Care Activity: may shower and pelvic rest Diet: heart healthy Wound Care Instructions: follow printed instructions Patient Instructions: Antibiotic Form Stand Alone Forms: General Discharge Information Follow-up/Referrals: Amari Gant MD [Physician] - Discharge Medications: Continued PNV cmb#95-ferrous fumarate-FA [] 28 mg iron- 800 mcg Tablet 1 tablet PO DAILY Date of admission: 12/10/23 21:37 Primary Care Provider: Ruth Ann Mckeon Admitting Provider: Amari Gant Attending physician on admission: Amari Gant Condition: Stable
[2023-12-11] MEDS: OXYTOCIN 30 UNITS/NS 500 ML 30 UNITS/500 ML BAG 125 UNITS IV CONT (18:24)
[2023-12-11] MEDS: BENZOCAINE 20% AER SPR (*SP) 56 GM CAN 1 SPRAY TOPICAL (19:52)
[2023-12-11] MEDS: WITCH HAZEL 40 PADS 1 PAD TOPICAL (19:52)
[2023-12-12 04:45] VITALS: BP 109/66; PULSE 84; RESP 16; TEMP 37.2; O2SAT 98
[2023-12-12 05:23] LABS: Hemoglobin 9.1 g/dL (12.0-15.0)
--- NOTE | 2023-12-12 05:45 | PM.OBPNVD ---
OB - PN: Subj Subjective Date/time seen: 12/12/23 05:45 Patient comments: no complaints and pain well controlled baby status: doing well, nursing well and bottle feeding well OB - PN: Obj Data Labs 12/12/23 05:07 Labs: Laboratory Results - last 24 hr 12/11/23 12/12/23 01:07 05:07 Hgb 9.1 L Hct 28.0 L RPR Non-reactive OB - PN A/P Plan Plan: routine care Comments: circ baby tomorrow Time Spent With Patient Time: Total time spent is greater than 50% in coordination of care (as documented) at patient's floor/unit and/or counseling patient: Time with patient: less than 15 minutes Exam Const: General: cooperative, healthy appearing and comfortable Orientation/consciousness: oriented to person, oriented to place and oriented to time Resp: Effort & Inspection: normal respiratory effort GI: Inspection: normal to inspection
[2023-12-12 08:30] VITALS: BP 116/68; PULSE 92; RESP 16; TEMP 36.8; O2SAT 99
[2023-12-12] MEDS: POLYSACCHARIDE IRON COMPLEX 150 MG CAPSULE PO ×2 (08:40→17:01)
[2023-12-12] MEDS: DOCUSATE SODIUM 100 MG CAPSULE PO ×2 (08:40→17:01)
[2023-12-12] MEDS: LANOLIN (LANSINOH) 7.5 GM CREAM 1 APPLIC TOPICAL (08:40)
[2023-12-12] MEDS: IBUPROFEN 600 MG TABLET PO (08:40)
[2023-12-12] MEDS: MULTIVIT/MIN/PREN/FOL AC/IRON TABLET 1 TAB PO (08:40)
--- NOTE | 2023-12-12 10:59 | PC.NURSE ---
Internet was down on the roll around computers, unable to scan patient at that time for the following medications: Ibuprofen 600mg, Pre-chilo Vitamin, Iron, Lanolin and Stool softener were all given @ 0840. See MAR.
[2023-12-12 20:00] VITALS: BP 104/63; PULSE 63; RESP 18; TEMP 36.9; O2SAT 96
--- NOTE | 2023-12-13 06:55 | PM.OBPNVD ---
OB - PN: Subj Subjective Date/time seen: 12/13/23 06:55 Patient comments: no complaints and pain well controlled baby status: doing well OB - PN: Obj Data Labs 12/12/23 05:07 OB - PN A/P Plan day: 2 Plan: routine care, discharge home and follow up 6 weeks Time Spent With Patient Time: Total time spent is greater than 50% in coordination of care (as documented) at patient's floor/unit and/or counseling patient: Time with patient: less than 15 minutes Exam Const: General: cooperative, healthy appearing, comfortable and overweight Orientation/consciousness: oriented to person, oriented to place and oriented to time Resp: Effort & Inspection: normal respiratory effort GI: Inspection: normal to inspection
[2023-12-13 08:10] VITALS: BP 97/57; PULSE 70; RESP 16; TEMP 36.4; O2SAT 100
[2023-12-13] MEDS: DOCUSATE SODIUM 100 MG CAPSULE PO (08:58)
[2023-12-13] MEDS: MULTIVIT/MIN/PREN/FOL AC/IRON TABLET 1 TAB PO (08:58)
[2023-12-13] MEDS: POLYSACCHARIDE IRON COMPLEX 150 MG CAPSULE PO (08:58)
--- NOTE | 2023-12-13 11:32 | PC.NURSE ---
[phone]-Hxmmboiohujua were made with father of the baby, mom in the bathroom. nurse name written on communication board, and dad encouraged to let mom know to call RN with concerns or questions about pumping or . Father voiced understanding of information and will call if there is a request for assistance. Reported to the Primary RN.
[2023-12-14 10:38] VITALS: BP 129/83; PULSE 86; RESP 18; TEMP 37; O2SAT 100
== END 2023-12-13 14:05 | disposition home or self-care (01) | DRG 807 ==
LOC: ANHLDR 12-11 17:58 → ANHOB2 12-11 20:39
PROVIDERS: Admitting Provider Obstetrics & Gynecology; PCP Physician Assistant; Visit Provider Obstetrics & Gynecology
DX: O34.211 Maternal care for low transverse scar from previous cesarean delivery (principal); Z37.0 Single live birth; Z3A.39 39 weeks gestation of pregnancy; O77.0 Labor and delivery complicated by meconium in amniotic fluid; O69.81X0 Labor and delivery complicated by cord around neck, without compression, not applicable or unspecified; O70.0 First degree perineal laceration during delivery
CPT/HCPCS: 36415; 85014; 85018; 85025; 86592; 86703; 86850; 86900; 86901; A9270; G0378; G0379; G0432; J2590; J2795; J7030; J7120